=== PATIENT | male | born 1970 | race Caucasian/White ===

== ENCOUNTER 2018-01-01 20:15 | Emergency (ER) ==
[2018-01-01 20:33] VITALS: BP 151/78; BMI 24.9
[2018-01-01] MEDS ORDERED: ZOFRAN 4 MG/2 ML IVP STA ×2 (20:37→22:17)
[2018-01-01] MEDS ORDERED: SODIUM CHLORIDE 1,000 ML IV STA ×3 (20:37→22:17)
[2018-01-01 21:07] VITALS: TEMP 97.8
[2018-01-01] MEDS ORDERED: PHENERGAN 25 MG/ML VIAL 25 MG in SODIUM CHLORIDE 50 ML IV STA (21:17)
[2018-01-01] MEDS ORDERED: PHENERGAN 25 MG/ML VIAL ONE (21:22)
[2018-01-01] MEDS ORDERED: CALCIUM GLUCONATE 10% IVP STA (21:57)
--- NOTE | 2018-01-01 22:14 | ED.PDOC ---
General ED Provider: Dr. JORDI TRUJILLO Chief Complaint: Diabetes Stated Complaint: Patient is a 47 year old male who has a history of Diabetes mellitus Type 2 on Insulin who states he ran out of his Insulin 3 days ago while on vac[place]. Time Seen by Physician: 22:08 Mode of Arrival: Walk-In Information Source: Patient Exam Limitations: No limitations Nursing and Triage Documentation Reviewed and Agree: Yes Reviewed sepsis parameters & appropriate labs ordered?: Yes System Inflammatory Response Syndrome: Pulse >90 BPM Sepsis Protocol: For patient's 13 years and over: Temp is 96.8 and below OR 101 and greater Pulse >90 BPM Resp >20/minute Acutely Altered Mental Status Are patient's symptoms suggestive of a new infection, such as: -Pneumonia -Skin, Soft Tissue -Endocarditis -UTI -Bone, Joint Infection -Implantable Device -Acute Abdominal Infection -Wound Infection -Meningitis -Blood Stream Catheter Infection -Unknown System Inflammatory Response Syndrome: Not Applicable Endocrine Complaint Exam - Diabetic Complication Complaint/Exam Onset/Duration: 3 days Symptoms Are: Still present Timing: Constant Initial Severity: Moderate Current Severity: Severe Character: Alert Aggravating: Reports: Medication change (lack of medication) Alleviating: Reports: None Associated Signs and Symptoms: Reports: Polyuria, Nausea, Vomiting Related History: Reports: DM 2, Insulin requiring, Hx of DKA Last Glucometer Reading: > 400 Cardiac Risk Factors: Reports: DM, Hypertension CVA Risk Factors: Reports: DM, Hypertension Serious Bacterial Infection Risk Factors: Reports: None Related Surgical History: Reports: None Dry Mucous Membranes: Yes Kussmaul Respirations: No Glascow Coma Scale (see protocol): 15 Focal Weakness: None Focal Sensory Loss: None Gait: Normal Nystagmus Present: No Gag Reflex Present: No Finger to Nose: Normal Romberg Test Positive: No Babinski Sign: Negative Right, Negative Left Heel to Toe Normal: Yes Differential Diagnoses: Diabetic Ketoacidosis, Sepsis Review of Systems - Review Of Systems Constitutional: Reports: Malaise, Weakness, Other (weakness) Eyes: Reports: No symptoms Ears, Nose, Mouth, Throat: Reports: No symptoms Respiratory: Reports: No symptoms Cardiac: Reports: No symptoms GI: Reports: Abdominal pain (cramping ), Nausea, Poor appetite, Poor fluid intake, Vomiting : Reports: No symptoms Musculoskeletal: Reports: No symptoms Skin: Reports: No symptoms Neurological: Reports: Anxiety Endocrine: Reports: No symptoms Hematologic/Lymphatic: Reports: No symptoms All Other Systems: Reviewed and Negative Past Medical History - Past Medical History Previously Healthy: Yes Endocrine: Reports: DM 2 Cardiovascular: Reports: Hypertension Respiratory: Reports: None Hematological: Reports: None Gastrointestinal: Reports: None Genitourinary: Reports: None Neuro/Psych: Reports: None Musculoskeletal: Reports: None Cancer: Reports: None - Surgical History General Surgical History: Reports: Orthopedic (Knee Acl) - Family History Family History: Reports: Diabetes - Social History Smoking Status: Never smoker Hx Substance Use: No Alcohol Screening: Occasionally - Immunizations Tetanus Shot up to Date: Yes Physical Exam - Physical Exam Appearance: Ill-appearing Ill-appearing: Severe Eyes: JOSE MANUEL, EOMI, Conjunctiva clear ENT: Dry mucosa Neck: Supple Respiratory: Airway patent, Breath sounds clear, Breath sounds equal, Respirations nonlabored Cardiovascular: Tachycardia GI/: Soft, Nontender Musculoskeletal: Normal strength, ROM intact, No edema, No calf tenderness Skin: Warm, Dry Neurological: Sensation intact, Alert, Oriented Psychiatric: Anxious Interpretation - EKG Interpretation Time of EKG #1: 21:46 Rate: Tachy Rhythm: Sinus Ectopy: None Erhard: NL ST Segment: Normal Interpretation: Sinus Tachycaria, Peaked T waves. Re-Evaluation - Re-Evaluation Time of Re-Evaluation: 22:40 Status: Improved Vital Signs Stable: Yes Physician Notification - Case Discussed Physician Notified: Alonso Time of Notification: 22:41 (accepted to ICU 10 at [facility] ) Critical Care Note - Critical Care Note Total Time (mins): 60 Course - Course Hematology/Chemistry: 01/01/18 20:40 01/01/18 20:40 Orders, Labs, Meds: Lab Review 01/01/18 01/01/18 01/01/18 20:40 20:40 20:40 WBC 15.00 H RBC 4.66 L Hgb 14.5 Hct 43.5 MCV 93.3 MCH 31.1 H MCHC 33.3 RDW Coeff of Nancy 12.2 Plt Count 339 Immature Gran % (Auto) 0.6 Neut % (Auto) 87.6 Lymph % (Auto) 7.1 L Lynn % (Auto) 4.1 Eos % (Auto) 0.1 Baso % (Auto) 0.5 Immature Gran # (Auto) 0.1 Neut # (Auto) 13.1 H Lymph # (Auto) 1.1 Lynn # (Auto) 0.6 Eos # (Auto) 0.0 Baso # (Auto) 0.1 Puncture Site O2 Saturation ABG pH ABG pCO2 ABG pO2 ABG HCO3 ABG Total CO2 ABG Base Excess Abdirashid Test FiO2 % Sodium 128 L Potassium 6.7 H* Chloride 87 L Carbon Dioxide < 5 L* Anion Gap 42.63694 BUN 31 H Creatinine 1.77 H Estimated GFR (MDRD) 41.00 BUN/Creatinine Ratio 17.51 Glucose 769 H* Calcium 9.8 Total Bilirubin 0.8 AST 27 ALT 43 Alkaline Phosphatase 226 H Total Protein 7.0 Albumin 3.6 Globulin 3.4 Albumin/Globulin Ratio 1.06 Amylase 25 Lipase 18 Urine Color Urine Clarity Urine pH Ur Specific [place] Urine Protein Urine Glucose (UA) Urine Ketones Urine Blood Urine Nitrite Urine Bilirubin Urine Urobilinogen Ur Leukocyte Esterase Urine Microscopic RBC Urine Microscopic WBC Ur Squamous Epith Cells Urine Bacteria Urine Mucus Acetone, Qual 01/01/18 01/01/18 01/01/18 20:40 21:30 22:53 WBC RBC Hgb Hct MCV MCH MCHC RDW Coeff of Nancy Plt Count Immature Gran % (Auto) Neut % (Auto) Lymph % (Auto) Lynn % (Auto) Eos % (Auto) Baso % (Auto) Immature Gran # (Auto) Neut # (Auto) Lymph # (Auto) Lynn # (Auto) Eos # (Auto) Baso # (Auto) Puncture Site Lr O2 Saturation 89.0 L ABG pH 7.1 L* ABG pCO2 18.2 L ABG pO2 75.0 L ABG HCO3 5.6 L ABG Total CO2 6 L ABG Base Excess -24 L Abdirashid Test + FiO2 % 21.0 Sodium Potassium Chloride Carbon Dioxide Anion Gap BUN Creatinine Estimated GFR (MDRD) BUN/Creatinine Ratio Glucose Calcium Total Bilirubin AST ALT Alkaline Phosphatase Total Protein Albumin Globulin Albumin/Globulin Ratio Amylase Lipase Urine Color Yellow Urine Clarity Clear Urine pH 5.0 Ur Specific [place] 1.015 Urine Protein 2+ Urine Glucose (UA) 2+ Urine Ketones 4+ Urine Blood Trace-lysed Urine Nitrite Negative Urine Bilirubin Negative Urine Urobilinogen 0.2 Ur Leukocyte Esterase Negative Urine Microscopic RBC 5-10 Urine Microscopic WBC 2-5 Ur Squamous Epith Cells 0-2 Urine Bacteria Trace Urine Mucus 1+ Acetone, Qual Moderate Orders Category Date Time Status ABG DRAW REQUEST Stat CARDIO 01/01/18 22:53 Completed NEBULIZER TREATMENT Stat CARDIO 01/01/18 22:42 Completed ACCUCHECK (ED) [ED ACCUCHECK ASSESSMENT] .ONCE EMERGENCY 01/01/18 22:42 Active ED IV/MEDIPORT/POWERPORT .ONCE EMERGENCY 01/01/18 20:34 Active ABG Stat LAB 01/01/18 22:53 Completed ACETONE, QUALITATIVE Stat LAB 01/01/18 20:40 Completed AMYLASE Stat LAB 01/01/18 20:40 Completed CBC W/ AUTO DIFF Stat LAB 01/01/18 20:40 Completed COMPREHENSIVE METABOLIC PANEL Stat LAB 01/01/18 20:40 Completed LIPASE Stat LAB 01/01/18 20:40 Completed URINALYSIS C & S IF INDICATED Stat LAB 01/01/18 21:30 Completed 0.9 % Sodium Chloride [Saline Flush] MEDS 01/01/18 20:34 Discontinued 1 syr IVF PRN PRN 0.9 % Sodium Chloride [Sodium Chloride] 100 ml MEDS 01/01/18 22:15 Discontinued Insulin Regular, Human [Humulin R] 100 unit IV 5 unit/hr Calcium Gluconate Inj [Calcium Gluconate 10%] MEDS 01/01/18 22:15 Discontinued 1,000 mg .ROUTE .STK-MED ONE Calcium Gluconate Inj [Calcium Gluconate 10%] MEDS 01/01/18 21:57 Discontinued 1,000 mg IVP ONCE STA Insulin Regular, Human [Humulin R] MEDS 01/01/18 22:15 Discontinued 10 unit IVP ONCE STA Ondansetron HCl/Pf [Zofran 4 mg/2 ml] MEDS 01/01/18 20:37 Discontinued 4 mg IVP ONCE STA Ondansetron HCl/Pf [Zofran 4 mg/2 ml] MEDS 01/01/18 22:17 Discontinued 4 mg IVP ONCE STA Promethazine HCl [Phenergan 25 mg/ml Vial] MEDS 01/01/18 21:22 Discontinued 25 mg .ROUTE .STK-MED ONE Promethazine HCl [Phenergan 25 mg/ml Vial] 25 mg MEDS 01/01/18 21:17 Discontinued 0.9 % Sodium Chloride [Sodium Chloride] 50 ml IV ONCE Sodium Bicarbonate [Sodium Bicarbonate 8.4%] MEDS 01/01/18 22:44 Discontinued 50 meq .ROUTE .STK-MED ONE Sodium Bicarbonate [Sodium Bicarbonate 8.4%] MEDS 01/01/18 22:44 Discontinued 50 meq IVP ONCE STA Sodium Bicarbonate [Sodium Bicarbonate 8.4%] MEDS 01/01/18 23:27 Discontinued 50 meq IVP ONCE STA Sodium Chloride 0.9% [Sodium Chloride] 1,000 ml MEDS 01/01/18 20:37 Discontinued IV BOLUS Sodium Chloride 0.9% [Sodium Chloride] 1,000 ml MEDS 01/01/18 20:38 Discontinued IV BOLUS Sodium Chloride 0.9% [Sodium Chloride] 1,000 ml MEDS 01/01/18 22:17 Discontinued IV BOLUS Medications Discontinued Medications Generic Name Dose Route Start Last Admin Trade Name Freq PRN Reason Stop Dose Admin Calcium Gluconate 1,000 mg 01/01/18 21:57 01/01/18 22:17 Calcium Gluconate 10% IVP 01/01/18 21:58 1,000 mg ONCE STA Administration Sodium Chloride 1,000 mls @ 1,000 mls/hr 01/01/18 20:37 01/01/18 21:00 Sodium Chloride IV 01/01/18 21:36 1,000 mls/hr BOLUS STA Administration Sodium Chloride 1,000 mls @ 1,000 mls/hr 01/01/18 20:38 01/01/18 22:14 Sodium Chloride IV 01/01/18 21:37 1,000 mls/hr BOLUS STA Administration Promethazine HCl 25 mg/ Sodium 51 mls @ 75 mls/hr 01/01/18 21:17 01/01/18 21: 23 Chloride IV 01/01/18 21:57 75 mls/hr ONCE STA Administration Insulin Human Regular 100 unit 100 mls @ 5 mls/hr 01/01/18 22:15 01/01/18 22: 26 / Sodium Chloride IV 5 unit/hr .Q20H GEOVANY 5 mls/hr Protocol Administration 5 UNIT/HR Sodium Chloride 1,000 mls @ 1,000 mls/hr 01/01/18 22:17 01/01/18 22:22 Sodium Chloride IV 01/01/18 23:16 1,000 mls/hr BOLUS STA Administration Insulin Human Regular 10 unit 01/01/18 22:15 01/01/18 22:25 Humulin R IVP 01/01/18 22:16 10 unit ONCE STA Administration Ondansetron HCl 4 mg 01/01/18 20:37 01/01/18 21:00 Zofran 4 Mg/2 Ml IVP 01/01/18 20:38 4 mg ONCE STA Administration Ondansetron HCl 4 mg 01/01/18 22:17 01/01/18 22:41 Zofran 4 Mg/2 Ml IVP 01/01/18 22:18 4 mg ONCE STA Administration Sodium Bicarbonate 50 meq 01/01/18 22:44 01/01/18 22:48 Sodium Bicarbonate 8.4% IVP 01/01/18 22:45 50 meq ONCE STA Administration Sodium Bicarbonate 50 meq 01/01/18 23:27 01/01/18 23:55 Sodium Bicarbonate 8.4% IVP 01/01/18 23:28 50 meq ONCE STA Administration Sodium Chloride 1 syr 01/01/18 20:34 Saline Flush IVF PRN PRN To flush IV Vital Signs: Temp Pulse Resp BP Pulse Ox 01/01/18 22:26 120 H 24 01/01/18 20:18 97.8 F 110 H 20 151/78 H 100 Departure - Departure Time of Disposition: 22:41 Disposition: TSF SHORT-TRM HOSP Discharge Problem: Acute hyperkalemia, Dehydration with hyponatremia DKA (diabetic ketoacidoses) Qualifiers: Diabetes mellitus type: type 2 Diabetes mellitus complication detail: without coma Qualified Code(s): E11.10 - Type 2 diabetes mellitus with ketoacidosis without coma Acute renal failure (ARF) Qualifiers: Acute renal failure type: unspecified Qualified Code(s): N17.9 - Acute kidney failure, unspecified Condition: Critical Pt referred to PMD for follow-up: Yes IPMP verified?: No Allergies/Adverse Reactions: Allergies No Known Allergies Allergy (Unverified 01/01/18 20:25) Home Medications: Ambulatory Orders Dapagliflozin Propanediol [Farxiga] 5 mg PO DAILY 01/01/18 Insulin Glargine,Hum.rec.anlog [Lantus] 40 unit SUBCUT BEDTIME 01/01/18 Insulin Regular, Human [Novolin R] 1 unit SQ DIRECTED 01/01/18 Testosterone Undecanoate [Aveed] 750 mg IM DIRECTED 01/01/18 Pt. Stabilized Within Hospital's Capabilities/Transferred To: [facility] Transfer Form Completed: Yes Disposition Discussed With: Patient, Family
[2018-01-01] MEDS ORDERED: CALCIUM GLUCONATE 10% ONE (22:15)
[2018-01-01] MEDS ORDERED: HUMULIN R 100 UNIT in SODIUM CHLORIDE 100 ML IV SCH (22:15)
[2018-01-01] MEDS ORDERED: HUMULIN R IVP STA (22:15)
[2018-01-01] MEDS ORDERED: SODIUM BICARBONATE 7.5% IVP STA (22:41)
[2018-01-01] MEDS ORDERED: SODIUM BICARBONATE 8.4% IVP STA ×2 (22:44→23:27)
[2018-01-01] MEDS ORDERED: SODIUM BICARBONATE 8.4% ONE (22:44)
== END 2018-01-01 23:53 | disposition short-term general hospital (02) ==
LOC: ED 20:15
DX: E11.10 Type 2 diabetes mellitus with ketoacidosis without coma (principal); N17.9 Acute kidney failure, unspecified; E86.0 Dehydration; E87.1 Hypo-osmolality and hyponatremia; I10 Essential (primary) hypertension; R53.1 Weakness; Z79.4 Long term (current) use of insulin; R11.2 Nausea with vomiting, unspecified
CPT/HCPCS: 36415; 80053; 81001; 82009; 82150; 82803; 82962; 83690; 85025; 96361; 96365; 96366; 96367; 96375; 96376; 99285